=== PATIENT | male | born 1990 | race American Indian/Alaskan Native ===

== ENCOUNTER 2021-12-06 12:53 | Emergency (ER) | payer SELFPAY ==
[2021-12-06] MEDS ORDERED: HALOPERIDOL LACTATE 5 MG/1 ML INJ IM PRN (13:09)
[2021-12-06] MEDS ORDERED: LORazepam 2 MG/ML VIAL IM PRN (13:09)
[2021-12-06] MEDS ORDERED: LACTATED RINGERS 1,000 ML IV ONE ×2 (13:15)
--- NOTE | 2021-12-06 13:15 | Emergency Department Report ---
ED General Adult HPI - General Chief complaint: Weakness Stated complaint: UNABLE TO SWEAT Time Seen by Provider: 12/06/21 13:08 Source: patient, EMS (Verbal report received from emergency medical services. EMS documentation not available at time of chart dictation ), RN notes reviewed Mode of arrival: Ambulatory Limitations: No Limitations - History of Present Illness Initial comments: The patient was evaluated in the emergency department for symptoms described in the history of present illness. He/she was evaluated in the context of the global COVID-19 pandemic, which necessitated consideration that the patient might be at risk for infection with the virus that causes COVID-19. Institutional protocols and algorithms that pertain to the evaluation of patients at risk for COVID-19 are in a state of rapid change based on information released by regulatory bodies including the CDC and federal and state organizations. These policies and algorithms were followed during the patient's care in the emergency department. Please note that these policies, procedures and recommendations changed on a rapid basis. This is a 31-year-old gentleman, who is reportedly homeless, who was brought to the hospital by emergency medical services with an EMS articulated complaint of patient stating that he feels hot and is not able to sweat. He denies physical pain. He admits to homicidality and suicidality. He denies hallucinations. He denies access to guns and firearms. EMS reports unremarkable vital signs in the field, and that patient is ambulatory in the field. They report the patient called 911 from up a phone in a parking lot. The patient is not accompanied by friends and family at this time. Improves with: none Worsens with: none - Related Data Allergies Allergy/AdvReac Type Severity Reaction Status Date / Time No Known Allergies Allergy Verified 12/06/21 12:57 ED Review of Systems ROS: Stated complaint: UNABLE TO SWEAT Other details as noted in HPI Comment: All other systems reviewed and negative Psychiatric: homicidal thoughts, suicidal thoughts ED Physical Exam - General Limitations: No Limitations General appearance: alert, in no apparent distress - Head Head exam: Present: atraumatic, normocephalic - Eye Eye exam: Present: normal appearance, EOMI. Absent: nystagmus - ENT ENT exam: Present: normal orophraynx, mucous membranes dry, normal external ear exam - Neck Neck exam: Present: normal inspection, full ROM. Absent: tenderness, meningismus - Respiratory Respiratory exam: Present: normal lung sounds bilaterally. Absent: respiratory distress, wheezes, rales, rhonchi, stridor, decreased breath sounds - Cardiovascular Cardiovascular Exam: Present: normal rhythm, tachycardia, normal heart sounds. Absent: bradycardia, irregular rhythm, systolic murmur, diastolic murmur, rubs, gallop - GI/Abdominal GI/Abdominal exam: Present: soft. Absent: distended, tenderness, guarding, rebound, rigid, pulsatile mass - Rectal Rectal exam: Present: deferred - Extremities Exam Extremities exam: Present: normal inspection, full ROM, other (2+ pulses noted in the bilateral upper and lower extremities. There is no palpable cord. negative Homans sign. Muscular compartments are soft. The pelvis is stable.). Absent: pedal edema, calf tenderness - Back Exam Back exam: Present: normal inspection. Absent: tenderness, CVA tenderness (R), CVA tenderness (L), paraspinal tenderness, vertebral tenderness - Neurological Exam Neurological exam: Present: alert, oriented X3, normal gait, other (No facial droop. Tongue midline. Extraocular movements intact bilaterally. Facial sensation intact to light touch in V1, V2, V3 distribution bilaterally. 5 and a 5 strength in 4 extremities. Sensation intact to light touch in 4 extremities.). Absent: motor sensory deficit - Psychiatric Psychiatric exam: Present: flat affect, homicidal ideation, suicidal ideation - Skin Skin exam: Present: warm, dry, intact, normal color. Absent: rash ED Course Vital Signs 12/06/21 12/06/21 12/06/21 12:58 13:47 14:01 Temperature 99.8 F H Pulse Rate 120 H 96 H 99 H Respiratory 20 8 L 18 Rate Blood Pressure 128/82 Blood Pressure 150/99 [Left] O2 Sat by Pulse 98 98 94 Oximetry 12/06/21 12/06/21 12/06/21 14:15 14:31 14:45 Temperature Pulse Rate 91 H 106 H 97 H Respiratory 13 12 11 L Rate Blood Pressure 128/82 111/67 111/67 Blood Pressure [Left] O2 Sat by Pulse 99 99 99 Oximetry 12/06/21 12/06/21 14:47 15:01 Temperature 98.3 F Pulse Rate 99 H Respiratory 11 L Rate Blood Pressure 111/67 Blood Pressure [Left] O2 Sat by Pulse 99 Oximetry - Reevaluation(s) Reevaluation #1: 12/06/21 14:15 Differential diagnosis, include but not limited to: Environmental hyperthermia, dehydration, electrolyte derangement, rhabdomyolysis, thyroid derangement, psychosis, homelessness Assessment and plan: 31-year-old gentleman, who is awake and alert to name, place and location, ambulatory with a steady gait, with a nonfocal motor examination, with no nuchal rigidity, and no meningeal signs, presenting with probable environmental hyperthermia. Place patient on school bus monitor, start cooling measures, start IV fluids. Place patient on 1013, and administer supportive care. Patient currently awake and protecting airway at this time. Reassess after initial data points. 12/06/21 15:13 Repeat heart rate 98 bpm. Repeat temperature 98.7 degrees. Laboratory studies thus far unremarkable with exception of mild hypoglycemia, which is likely secondary to patient's underlying homeless status. Have requested that nursing team feed the patient, have placed patient on Accu-Cheks every 6 hours, as needed dextrose ordered, serum toxicology studies pending at this time. Reevaluation #2: 12/06/21 15:15 Mild leukopenia, mild normocytic anemia reviewed and appreciated. May be followed up and evaluated as an outpatient. Has evidence of mild dehydration, as well as malnutrition. Serum toxicology studies pending 12/06/21 16:17 Repeat glucose is within normal limits. Serum toxicology studies are unremarkable. The emergency room follow-up on the patient's urine sample, urine drug screen and COVID swab. However, these tests are not required to exclude emergent medical conditions. At this point in time, this patient does not appear to have an immediate medical contraindication to psychiatric admission, evaluation, consultation and placement. Emergency room will follow along as the patient provides the aforementioned tests. Awaiting psychiatric consultations and recommendation. Suspect that patient is malingering for the purposes of secondary gain. ED Medical Decision Making - Lab Data Result diagrams: 12/06/21 13:38 12/06/21 13:38 Vital Signs 12/06/21 12:58 Temperature 99.8 F H Pulse Rate 120 H Respiratory 20 Rate Blood Pressure 150/99 [Left] O2 Sat by Pulse 98 Oximetry - EKG Data -: EKG Interpreted by Ma EKG shows normal: sinus rhythm Rate: normal - EKG Data When compared to previous EKG there are: previous EKG unavailable 12/06/21 15:13 The EKG is interpreted at 14: 40 Sinus rhythm, 92 bpm. Normal axis, normal P wave axis, high left ventricular voltage, and motion artifact. This is an abnormal EKG. This is not a STEMI. There is no prior for comparison Critical care attestation.: If time is entered above; I have spent that time in minutes in the direct care of this critically ill patient, excluding procedure time. ED Disposition Clinical Impression: Homelessness, Malnutrition, Medical clearance for psychiatric admission, Heat exposure Disposition: [address] [place] [address] Is pt being admited?: No Does the pt Need Aspirin: No Condition: Stable
[2021-12-06 14:44] LABS: Hematocrit 29.3 % (35.5-45.6); Hemoglobin 9.8 gm/dl (11.8-15.2); Mean Corpuscular HGB Conc 33 % (32-34); Mean Corpuscular Volume 86 fl (84-94); Platelet Count 165 K/mm3 (140-440); Red Blood Count 3.43 M/mm3 (3.65-5.03); Red Cell Distribution Width 14.8 % (13.2-15.2)
[2021-12-06 15:07] LABS: Alanine Aminotransferase 14 units/L (7-56); Albumin 2.6 g/dL (3.9-5); Blood Urea Nitrogen 4 mg/dL (9-20); Calcium 8.3 mg/dL (8.4-10.2); Hemolysis Index 3
[2021-12-06] MEDS ORDERED: DEXTROSE 10% *Hypoglycemia IV PRN (15:10)
[2021-12-06 15:27] LABS: BUN/Creatinine Ratio 7
[2021-12-06 16:16] LABS: INR 0.94 (0.87-1.13)
[2021-12-06 16:17] LABS: Partial Thromboplastin Time 41.3 Sec. (24.2-36.6)
[2021-12-06 16:18] LABS: Bilirubin,Urine NEG (Negative); Blood,Urine NEG (Negative); Color,Urine Straw (Yellow); Protein,Urine <15 mg/dL mg/dL (Negative); Urobilinogen,Urine < 2.0 mg/dL (<2.0)
[2021-12-06 16:22] LABS: Mucus,Urine FEW /HPF; RBC,Urine < 1.0 /HPF (0.0-6.0); WBC,Urine < 1.0 /HPF (0.0-6.0)
[2021-12-06 16:26] LABS: Benzodiazepines Screen,Urine Negative; Cocaine Screen,Urine Negative; Methadone Screen,Urine Negative; Opiate Screen,Urine Negative
[2021-12-06 17:25] LABS: Amphetamine Screen,Urine Positive; Cannabinoid Screen,Urine Positive
[2021-12-06 20:45] VITALS: BP 110/56
--- NOTE | 2021-12-07 09:36 | Consultation ---
History of Present Illness - Reason for Consult Consult date: 12/07/21 Reason for consult: Mental health evaluation - History of Present Psychiatric Illness The patient is a 31 year old male with no psychiatric history who presents to the ED with suicidal ideation. The patient was seen today. He is calm, alert and oriented x3 with appropriate affect. The patient states he came to the ED due to heat exhaustion "and they asked me if I was suicidal, I said yes." The patient denies being depressed or excessively anxious. He denies any current suicidal/homicidal ideation and denies hallucinations. PAST PSYCHIATRIC HISTORY Diagnoses: Denies Suicide attempts or Self-harm behavior: Denies Prior psychiatric hospitalizations: Denies Substance Abuse history: Marijuana Previous psychiatric medications tried: Denies Outpatient treatment: Denies PAST MEDICAL HISTORY: none reported Family Psychiatric History: None reported or documented SOCIAL HISTORY Marital Status: Single Living Arrangements: Homeless Employment Status: unemployed Access to guns/weapons: Denies Education:12th grade History of Abuse: none reported Legal History: none reported REVIEW OF SYSTEMS Constitutional: Negative for weight loss ENT: Negative for stridor Respiratory: Negative for cough or hemoptysis All other systems reviewed and are negative MENTAL STATUS EXAMINATION General Appearance and Behavior: Age appropriate, good hygiene, wearing appropriate clothes, fair eye contact, cooperative polite with questioning. Cooperation: Participating/engaged Psychomotor Behavior: unremarkable and within normal limits Mood: OK Affect and affective range: congruent with mood Thought Process: Goal directed Thought Content:Reality oriented Speech: Normal volume, Regular rate and rhythm, Suicidal Ideation: Denies Homicidal Ideation: Denies Hallucinations: Denies Delusions: None Impulse Control: Normal Insight and Judgment: Good insight and judgment, Memory: Normal, Attention: Normal, Orientation: Alert, oriented, Assessment and Plan (1)Mental health evaluation Treatment DC 1013 Case management Sitter: Per primary Medical: Per primary Disposition: Do not recommend acute inpatient psychiatric treatment. Hand Glove Cleaner will provide patient with psychiatric out patient resources Will sign off. Thanks Case staffed with Dr. Coffman Medications and AllergiesThe patient Medications and Allergies Allergies Allergy/AdvReac Type Severity Reaction Status Date / Time No Known Allergies Allergy Verified 12/06/21 12:57 Active Meds: Active Medications Dextrose (Dextrose 10% *Hypoglycemia) 75 ml IV PRN PRN PRN Reason: Hypoglycemia Haloperidol Lactate (Haloperidol Lactate 5 Mg/1 Ml Inj) 5 mg IM Q6HR PRN PRN Reason: Agitation Last Admin: 12/07/21 00:34 Dose: 5 mg Lorazepam (Lorazepam 2 Mg/Ml Vial) 2 mg IM Q4HR PRN PRN Reason: Agitation Multivitamins (Multivitamins ,Therapeutic Tab) 1 each PO QDAY [facility] Mental Status Exam - Vital signs Last Vital Signs Temp 98.4 F 12/06/21 20:21 Pulse 91 H 12/06/21 20:21 Resp 18 12/06/21 20:21 BP 110/56 12/06/21 20:21 Pulse Ox 100 12/06/21 22:00 Results Result Diagrams: 12/06/21 13:38 12/06/21 13:38 Abnormal lab results 12/06/21 12/06/21 12/06/21 Range/Units 13:38 13:38 13:38 WBC 3.4 L (4.5-11.0) K/mm3 RBC 3.43 L (3.65-5.03) M/mm3 Hgb 9.8 L (11.8-15.2) gm/dl Hct 29.3 L (35.5-45.6) % APTT (24.2-36.6) Sec. Sodium 136 L (137-145) mmol/L Carbon Dioxide 18 L (22-30) mmol/L BUN 4 L (9-20) mg/dL Creatinine 0.6 L (0.8-1.3) mg/dL Glucose 64 L (75-100) mg/dL POC Glucose (70-105) mg/dL Calcium 8.3 L (8.4-10.2) mg/dL Alkaline Phosphatase 34 L (35-129) units/L Total Creatine Kinase 250 H (55-170) units/L Total Protein 5.1 L (6.3-8.2) g/dL Albumin 2.6 L (3.9-5) g/dL Urine pH (5.0-7.0) Salicylates < 0.3 L (2.8-20.0) mg/dL Acetaminophen (10.0-30.0) ug/mL 12/06/21 12/06/21 12/06/21 Range/Units 13:38 14:23 15:07 WBC (4.5-11.0) K/mm3 RBC (3.65-5.03) M/mm3 Hgb (11.8-15.2) gm/dl Hct (35.5-45.6) % APTT 41.3 H (24.2-36.6) Sec. Sodium (137-145) mmol/L Carbon Dioxide (22-30) mmol/L BUN (9-20) mg/dL Creatinine (0.8-1.3) mg/dL Glucose (75-100) mg/dL POC Glucose (70-105) mg/dL Calcium (8.4-10.2) mg/dL Alkaline Phosphatase (35-129) units/L Total Creatine Kinase (55-170) units/L Total Protein (6.3-8.2) g/dL Albumin (3.9-5) g/dL Urine pH 9.0 H (5.0-7.0) Salicylates (2.8-20.0) mg/dL Acetaminophen 5.0 L (10.0-30.0) ug/mL 12/06/21 Range/Units 16:11 WBC (4.5-11.0) K/mm3 RBC (3.65-5.03) M/mm3 Hgb (11.8-15.2) gm/dl Hct (35.5-45.6) % APTT (24.2-36.6) Sec. Sodium (137-145) mmol/L Carbon Dioxide (22-30) mmol/L BUN (9-20) mg/dL Creatinine (0.8-1.3) mg/dL Glucose (75-100) mg/dL POC Glucose 119 H (70-105) mg/dL Calcium (8.4-10.2) mg/dL Alkaline Phosphatase (35-129) units/L Total Creatine Kinase (55-170) units/L Total Protein (6.3-8.2) g/dL Albumin (3.9-5) g/dL Urine pH (5.0-7.0) Salicylates (2.8-20.0) mg/dL Acetaminophen (10.0-30.0) ug/mL All other labs normal.
[2021-12-07] MEDS ORDERED: MULTIVITAMINS ,THERAPEUTIC TAB PO SCH (10:00)
--- NOTE | 2021-12-07 12:20 | Event Note ---
Date: 12/07/21 The patient was evaluated in the emergency department for symptoms described in the history of present illness. He/she was evaluated in the context of the global COVID-19 pandemic, which necessitated consideration that the patient might be at risk for infection with the virus that causes COVID-19. Institutional protocols and algorithms that pertain to the evaluation of patients at risk for COVID-19 are in a state of rapid change based on information released by regulatory bodies including the CDC and federal and state organizations. These policies and algorithms were followed during the patient's care in the emergency department. Please note that these policies, procedures and recommendations changed on a rapid basis. Laboratory studies, vital signs, nursing documentation, ER documentation, and psychiatric documentation are reviewed and appreciated. Nursing team reports no acute events this morning or concerns. The patient is awake and ambulating and does not appear to be in any acute distress. The patient was deemed medically suitable for psychiatric disposition and placement during his initial ER evaluation. The patient continues to remain medically suitable for psychiatric placement and disposition. He is currently pending psychiatric placement. The psychiatric team have advised that he does not require 1013 or involuntary confinement. He will be discharged with outpatient resources. Patient awake and alert ambulating, clinically sober, and not encephalopathic at this time Vital Signs 12/06/21 12/06/21 12/06/21 12:58 13:47 14:01 Temperature 99.8 F H Pulse Rate 120 H 96 H 99 H Respiratory 20 8 L 18 Rate Blood Pressure 128/82 Blood Pressure 150/99 [Left] O2 Sat by Pulse 98 98 94 Oximetry 12/06/21 12/06/21 12/06/21 14:15 14:31 14:45 Temperature Pulse Rate 91 H 106 H 97 H Respiratory 13 12 11 L Rate Blood Pressure 128/82 111/67 111/67 Blood Pressure [Left] O2 Sat by Pulse 99 99 99 Oximetry 12/06/21 12/06/21 12/06/21 14:47 15:01 15:15 Temperature 98.3 F Pulse Rate 99 H 99 H Respiratory 11 L 8 L Rate Blood Pressure 111/67 132/95 Blood Pressure [Left] O2 Sat by Pulse 99 100 Oximetry 12/06/21 12/06/21 12/06/21 15:31 15:45 16:01 Temperature Pulse Rate 97 H 101 H 96 H Respiratory 14 16 16 Rate Blood Pressure 122/85 122/85 112/79 Blood Pressure [Left] O2 Sat by Pulse 96 95 97 Oximetry 12/06/21 12/06/21 12/06/21 16:15 20:21 22:00 Temperature 98.4 F Pulse Rate 97 H 91 H Respiratory 16 18 Rate Blood Pressure 112/79 Blood Pressure 110/56 [Left] O2 Sat by Pulse 94 97 100 Oximetry Lab Results 12/06/21 12/06/21 12/06/21 Range/Units 13:38 13:38 13:38 WBC 3.4 L (4.5-11.0) K/mm3 RBC 3.43 L (3.65-5.03) M/mm3 Hgb 9.8 L (11.8-15.2) gm/dl Hct 29.3 L (35.5-45.6) % MCV 86 (84-94) fl MCH 29 (28-32) pg MCHC 33 (32-34) % RDW 14.8 (13.2-15.2) % Plt Count 165 (140-440) K/mm3 PT (12.2-14.9) Sec. INR (0.87-1.13) APTT (24.2-36.6) Sec. Sodium 136 L (137-145) mmol/L Potassium 3.6 (3.6-5.0) mmol/L Chloride 102.7 (98-107) mmol/L Carbon Dioxide 18 L (22-30) mmol/L Anion Gap 19 mmol/L BUN 4 L (9-20) mg/dL Creatinine 0.6 L (0.8-1.3) mg/dL Estimated GFR > 60 ml/min BUN/Creatinine Ratio 7 % Glucose 64 L (75-100) mg/dL POC Glucose (70-105) mg/dL Calcium 8.3 L (8.4-10.2) mg/dL Total Bilirubin < 0.20 (0.1-1.2) mg/dL AST 18 (5-40) units/L ALT 14 (7-56) units/L Alkaline Phosphatase 34 L (35-129) units/L Total Creatine Kinase 250 H (55-170) units/L Total Protein 5.1 L (6.3-8.2) g/dL Albumin 2.6 L (3.9-5) g/dL Albumin/Globulin Ratio 1.0 % TSH 0.771 (0.270-4.200) mlU/mL Urine Color (Yellow) Urine Turbidity (Clear) Urine pH (5.0-7.0) Ur Specific [place] (1.003-1.030) Urine Protein (Negative) mg/dL Urine Glucose (UA) (Negative) mg/dL Urine Ketones (Negative) mg/dL Urine Blood (Negative) Urine Nitrite (Negative) Urine Bilirubin (Negative) Urine Urobilinogen (<2.0) mg/dL Ur Leukocyte Esterase (Negative) Urine WBC (Auto) (0.0-6.0) /HPF Urine RBC (Auto) (0.0-6.0) /HPF Urine Mucus /HPF Salicylates (2.8-20.0) mg/dL Urine Opiates Screen Urine Methadone Screen Acetaminophen (10.0-30.0) ug/mL Ur Barbiturates Screen Ur Phencyclidine Scrn Ur Amphetamines Screen U Benzodiazepines Scrn Urine Cocaine Screen U Marijuana (THC) Screen Drugs of Abuse Note Plasma/Serum Alcohol (0-0.07) % 12/06/21 12/06/21 12/06/21 Range/Units 13:38 13:38 13:38 WBC (4.5-11.0) K/mm3 RBC (3.65-5.03) M/mm3 Hgb (11.8-15.2) gm/dl Hct (35.5-45.6) % MCV (84-94) fl MCH (28-32) pg MCHC (32-34) % RDW (13.2-15.2) % Plt Count (140-440) K/mm3 PT (12.2-14.9) Sec. INR (0.87-1.13) APTT (24.2-36.6) Sec. Sodium (137-145) mmol/L Potassium (3.6-5.0) mmol/L Chloride (98-107) mmol/L Carbon Dioxide (22-30) mmol/L Anion Gap mmol/L BUN (9-20) mg/dL Creatinine (0.8-1.3) mg/dL Estimated GFR ml/min BUN/Creatinine Ratio % Glucose (75-100) mg/dL POC Glucose (70-105) mg/dL Calcium (8.4-10.2) mg/dL Total Bilirubin (0.1-1.2) mg/dL AST (5-40) units/L ALT (7-56) units/L Alkaline Phosphatase (35-129) units/L Total Creatine Kinase (55-170) units/L Total Protein (6.3-8.2) g/dL Albumin (3.9-5) g/dL Albumin/Globulin Ratio % TSH (0.270-4.200) mlU/mL Urine Color (Yellow) Urine Turbidity (Clear) Urine pH (5.0-7.0) Ur Specific [place] (1.003-1.030) Urine Protein (Negative) mg/dL Urine Glucose (UA) (Negative) mg/dL Urine Ketones (Negative) mg/dL Urine Blood (Negative) Urine Nitrite (Negative) Urine Bilirubin (Negative) Urine Urobilinogen (<2.0) mg/dL Ur Leukocyte Esterase (Negative) Urine WBC (Auto) (0.0-6.0) /HPF Urine RBC (Auto) (0.0-6.0) /HPF Urine Mucus /HPF Salicylates < 0.3 L (2.8-20.0) mg/dL Urine Opiates Screen Urine Methadone Screen Acetaminophen 5.0 L (10.0-30.0) ug/mL Ur Barbiturates Screen Ur Phencyclidine Scrn Ur Amphetamines Screen U Benzodiazepines Scrn Urine Cocaine Screen U Marijuana (THC) Screen Drugs of Abuse Note Plasma/Serum Alcohol < 0.01 (0-0.07) % 12/06/21 12/06/21 12/06/21 Range/Units 14:23 15:07 15:07 WBC (4.5-11.0) K/mm3 RBC (3.65-5.03) M/mm3 Hgb (11.8-15.2) gm/dl Hct (35.5-45.6) % MCV (84-94) fl MCH (28-32) pg MCHC (32-34) % RDW (13.2-15.2) % Plt Count (140-440) K/mm3 PT 13.9 (12.2-14.9) Sec. INR 0.94 (0.87-1.13) APTT 41.3 H (24.2-36.6) Sec. Sodium (137-145) mmol/L Potassium (3.6-5.0) mmol/L Chloride (98-107) mmol/L Carbon Dioxide (22-30) mmol/L Anion Gap mmol/L BUN (9-20) mg/dL Creatinine (0.8-1.3) mg/dL Estimated GFR ml/min BUN/Creatinine Ratio % Glucose (75-100) mg/dL POC Glucose (70-105) mg/dL Calcium (8.4-10.2) mg/dL Total Bilirubin (0.1-1.2) mg/dL AST (5-40) units/L ALT (7-56) units/L Alkaline Phosphatase (35-129) units/L Total Creatine Kinase (55-170) units/L Total Protein (6.3-8.2) g/dL Albumin (3.9-5) g/dL Albumin/Globulin Ratio % TSH (0.270-4.200) mlU/mL Urine Color Straw (Yellow) Urine Turbidity Clear (Clear) Urine pH 9.0 H (5.0-7.0) Ur Specific [place] 1.004 (1.003-1.030) Urine Protein <15 mg/dl (Negative) mg/dL Urine Glucose (UA) Neg (Negative) mg/dL Urine Ketones Neg (Negative) mg/dL Urine Blood Neg (Negative) Urine Nitrite Neg (Negative) Urine Bilirubin Neg (Negative) Urine Urobilinogen < 2.0 (<2.0) mg/dL Ur Leukocyte Esterase Neg (Negative) Urine WBC (Auto) < 1.0 (0.0-6.0) /HPF Urine RBC (Auto) < 1.0 (0.0-6.0) /HPF Urine Mucus Few /HPF Salicylates (2.8-20.0) mg/dL Urine Opiates Screen Negative Urine Methadone Screen Negative Acetaminophen (10.0-30.0) ug/mL Ur Barbiturates Screen Negative Ur Phencyclidine Scrn Negative Ur Amphetamines Screen Positive U Benzodiazepines Scrn Negative Urine Cocaine Screen Negative U Marijuana (THC) Screen Positive Drugs of Abuse Note Disclamer Plasma/Serum Alcohol (0-0.07) % 12/06/21 Range/Units 16:11 WBC (4.5-11.0) K/mm3 RBC (3.65-5.03) M/mm3 Hgb (11.8-15.2) gm/dl Hct (35.5-45.6) % MCV (84-94) fl MCH (28-32) pg MCHC (32-34) % RDW (13.2-15.2) % Plt Count (140-440) K/mm3 PT (12.2-14.9) Sec. INR (0.87-1.13) APTT (24.2-36.6) Sec. Sodium (137-145) mmol/L Potassium (3.6-5.0) mmol/L Chloride (98-107) mmol/L Carbon Dioxide (22-30) mmol/L Anion Gap mmol/L BUN (9-20) mg/dL Creatinine (0.8-1.3) mg/dL Estimated GFR ml/min BUN/Creatinine Ratio % Glucose (75-100) mg/dL POC Glucose 119 H (70-105) mg/dL Calcium (8.4-10.2) mg/dL Total Bilirubin (0.1-1.2) mg/dL AST (5-40) units/L ALT (7-56) units/L Alkaline Phosphatase (35-129) units/L Total Creatine Kinase (55-170) units/L Total Protein (6.3-8.2) g/dL Albumin (3.9-5) g/dL Albumin/Globulin Ratio % TSH (0.270-4.200) mlU/mL Urine Color (Yellow) Urine Turbidity (Clear) Urine pH (5.0-7.0) Ur Specific [place] (1.003-1.030) Urine Protein (Negative) mg/dL Urine Glucose (UA) (Negative) mg/dL Urine Ketones (Negative) mg/dL Urine Blood (Negative) Urine Nitrite (Negative) Urine Bilirubin (Negative) Urine Urobilinogen (<2.0) mg/dL Ur Leukocyte Esterase (Negative) Urine WBC (Auto) (0.0-6.0) /HPF Urine RBC (Auto) (0.0-6.0) /HPF Urine Mucus /HPF Salicylates (2.8-20.0) mg/dL Urine Opiates Screen Urine Methadone Screen Acetaminophen (10.0-30.0) ug/mL Ur Barbiturates Screen Ur Phencyclidine Scrn Ur Amphetamines Screen U Benzodiazepines Scrn Urine Cocaine Screen U Marijuana (THC) Screen Drugs of Abuse Note Plasma/Serum Alcohol (0-0.07) %
--- NOTE | 2021-12-08 10:40 | Electrocardiograph Report ---
[facility] Test Date: 2021-12-06 Test Time: 14:43:08 Pat Name: JUSTIN CALDERON Department: Room: Gender: M Fruit Farmworker: ER : 1990 Requested By: CHRISTINA MCMILLAN Order Number: [id number] Reading MD: Nixon Cifuentes Measurements Intervals [place] Rate: 92 P: 81 MS: 153 QRS: 88 QRSD: 101 T: 55 QT: 354 QTc: 438 Interpretive Statements Sinus rhythm Normal ECG Compared to ECG 12/06/2021 14:39:39 No significant changes Electronically Signed On 12-08-2021 10:40:16 EDT by Nixon Cifuentes
--- NOTE | 2021-12-08 10:40 | Electrocardiograph Report ---
[facility] Test Date: 2021-12-06 Test Time: 14:39:39 Pat Name: JUSTIN CALDERON Department: Room: Gender: M Parking Assistant: ER : 1990 Requested By: CHRISTINA MCMILLAN Order Number: [id number] Reading MD: Nixon Cifuentes Measurements Intervals [place] Rate: 92 P: 79 [place]: 152 QRS: 88 QRSD: 101 T: 59 QT: 358 QTc: 443 Interpretive Statements Sinus rhythm Normal ECG No previous ECG available for comparison Electronically Signed On 12-08-2021 10:39:50 EDT by Nixon Cifuentes
== END 2021-12-07 13:38 | disposition home or self-care (01) ==
LOC: ED 12:53
DX: T67.8XXA Other effects of heat and light, initial encounter (principal); Z59.00 Homelessness unspecified; E46 Unspecified protein-calorie malnutrition; Z13.30 Encounter for screening examination for mental health and behavioral disorders, unspecified; X58.XXXA Exposure to other specified factors, initial encounter; Y93.89 Activity, other specified; Y92.89 Other specified places as the place of occurrence of the external cause; Y99.8 Other external cause status
CPT/HCPCS: 36415; 80053; 80307; 81001; 82550; 82962; 84443; 85027; 85610; 85730; 93005; 96360; 96361; 96372; 99284; J7120; 80320; G0480